=== PATIENT | female | born 1995 | race Caucasian/White ===

== ENCOUNTER 2022-06-17 16:52 | Emergency (ER) | payer BC ==
[2022-06-17 17:18] LABS: Glucose,Whole Blood 113 mg/dL (70-110)
[2022-06-17 17:37] LABS: Basophils % (A) 0 %; Eosinophils # (A) 0.1 k/uL (0-0.7); Eosinophils % (A) 1 %; HCT 42.2 % (34.0-46.0); Lymphocytes # (A) 1.1 k/uL (1.0-4.8); Lymphocytes % (A) 11 %; MCH 30.4 pg (25.0-35.0); MCHC 33.1 g/dL (31.0-37.0); MCV 91.6 fL (80.0-100.0); Monocytes # (A) 0.6 k/uL (0-1.0); Monocytes % (A) 6 %; Neutrophils # (A) 8.2 k/uL (1.3-7.7); Neutrophils % (A) 82 %; Platelet Count 241 k/uL (150-450); RDW 12.6 % (11.5-15.5)
[2022-06-17 18:11] LABS: ALT 18 U/L (4-34); AST 17 U/L (14-36); African American GFR (CKD) >90 (>60 ml/min/1.73 sqM); Albumin 4.5 g/dL (3.5-5.0); Alkaline Phosphatase 53 U/L (38-126); Anion Gap 9 mmol/L; Blood Urea Nitrogen 4 mg/dL (7-17); Calcium 8.7 mg/dL (8.4-10.2); Carbon Dioxide 29 mmol/L (22-30); Chloride 103 mmol/L (98-107); Glucose 84 mg/dL (74-99); Non-African American GFR(CKD) >90 (>60 ml/min/1.73 sqM); Potassium 3.5 mmol/L (3.5-5.1); Sodium 141 mmol/L (137-145); Total Bilirubin 0.9 mg/dL (0.2-1.3); Total Protein 7.3 g/dL (6.3-8.2)
[2022-06-17] MEDS ORDERED: SODIUM CHLORIDE 0.9% 1,000 ML IV ONE (18:55)
--- NOTE | 2022-06-17 18:57 | ED ---
General Adult HPI - General Chief complaint: Syncope Stated complaint: syncope Time Seen by Provider: 06/17/22 18:36 Source: patient, RN notes reviewed Mode of arrival: ambulatory Limitations: no limitations - History of Present Illness Initial comments: 26-year-old female with no significant past medical history presents the emergency department with a chief complaint of syncope. She reports that she was at work earlier had an episode where she felt faint and "passed out for a few seconds." Patient denies hitting her head, any anticoagulant use. She denies any dizziness, lightheadedness, vision changes, headache, nausea, vomiting, diarrhea. She denies a history of seizures or diabetes. She denies any recent alcohol or drug use. - Related Data Previous Rx's Medication Instructions Recorded Famotidine [Pepcid] 20 mg PO BID #20 tablet 02/05/17 Ondansetron Odt [Zofran ODT] 4 mg PO Q8HR PRN #20 tab 02/05/17 Allergies Allergy/AdvReac Type Severity Reaction Status Date / Time No Known Allergies Allergy Verified 06/17/22 17:12 Review of Systems ROS Statement: Those systems with pertinent positive or pertinent negative responses have been documented in the HPI. ROS Other: All systems not noted in ROS Statement are negative. Past Medical History Past Medical History: Asthma, GERD/Reflux, Skin Disorder Additional Past Medical History / Comment(s): FREQ/ N/V OFF AND ON PAST MONTH. ECZEMA History of Any Multi-Drug Resistant Organisms: None Reported Past Surgical History: Cholecystectomy Past Anesthesia/Blood Transfusion Reactions: No Reported Reaction Past Psychological History: No Psychological Hx Reported Smoking Status: Current every day smoker Past Alcohol Use History: Daily Past Drug Use History: Marijuana General Exam Limitations: no limitations General appearance: alert, in no apparent distress Head exam: Present: atraumatic, normocephalic, normal inspection Eye exam: Present: normal appearance, PERRL, EOMI. Absent: scleral icterus, conjunctival injection, periorbital swelling ENT exam: Present: normal exam, mucous membranes moist Neck exam: Present: normal inspection. Absent: tenderness, meningismus, lymphadenopathy Respiratory exam: Present: normal lung sounds bilaterally. Absent: respiratory distress, wheezes, rales, rhonchi, stridor Cardiovascular Exam: Present: regular rate, normal rhythm, normal heart sounds. Absent: systolic murmur, diastolic murmur, rubs, gallop, clicks GI/Abdominal exam: Present: soft, normal bowel sounds. Absent: distended, tenderness, guarding, rebound, rigid Extremities exam: Present: normal inspection, full ROM, normal capillary refill. Absent: tenderness, pedal edema, joint swelling, calf tenderness Back exam: Present: normal inspection Neurological exam: Present: alert, oriented X3, CN II-XII intact Psychiatric exam: Present: normal affect, normal mood Skin exam: Present: warm, dry, intact, normal color. Absent: rash Course Vital Signs 06/17/22 06/17/22 06/17/22 17:09 19:12 21:41 Temperature 97.7 F 98.1 F Pulse Rate 82 60 64 Respiratory 18 16 16 Rate Blood Pressure 128/91 110/69 114/61 O2 Sat by Pulse 18 L 100 99 Oximetry EKG Findings - EKG Comments: EKG Findings:: I interpreted the following: EKG performed at 17:19 and normal sinus rhythm. Rate is 60 bpm VT interval 154, QRS duration 86, QT/QTc 3/402 Medical Decision Making - Medical Decision Making Was pt. sent in by a medical professional or institution (Dr. PA, WHEELCHAIR VAN OPERATOR FIRST RESPONDER, urgent care, hospital, or [facility]...) When possible be specific @ -[No] Did you speak to anyone other than the patient for history (EMS, parent, family, police, friend...)? What history was obtained from this source @ -[No] Did you review nursing and triage notes (agree or disagree)? Why? @ -[I reviewed and agree with nursing and triage notes] Were old charts reviewed (outside hosp., previous admission, EMS record, old EKG, old radiological studies, urgent care reports/EKG's, [facility] records)? Report findings @ -[No old charts were reviewed] Differential Diagnosis (chest pain, altered mental status, abdominal pain women, abdominal pain men, vaginal bleeding, weakness, fever, dyspnea, syncope, headache, dizziness, GI bleed, back pain, seizure, CVA, palpatations, mental health, musculoskeletal)? @ -[not applicable] EKG interpreted by me (3pts min.). @ -[As above] X-rays interpreted by me (1pt min.). @ -[None done] CT interpreted by me (1pt min.). @ -[None done] U/S interpreted by me (1pt. min.). @ -[None done] What testing was considered but not performed or refused? (CT, X-rays, U/S, labs)? Why? @ -[None] What meds were considered but not given or refused? Why? @ -[None] Did you discuss the management of the patient with other professionals (professionals i.e. , PA, WHEELCHAIR VAN OPERATOR FIRST RESPONDER, lab, RT, psych nurse, elementary school social worker, intellectual property lawyer, teacher, chief juvenile probation officer, caseworker protective services)? Give summary @ -[No] Was smoking cessation discussed for >3mins.? @ -[No] Was critical care preformed (if so, how long)? @ -[No] Were there social determinants of health that impacted care today? How? (Homelessness, low income, unemployed, alcoholism, drug addiction, transportation, low edu. Level, literacy, decrease access to med. care, care home, rehab)? @ -[No] Was there de-escalation of care discussed even if they declined (Discuss DNR or withdrawal of care, Hospice)? DNR status @ -[No] What co-morbidities impacted this encounter? (DM, HTN, Smoking, COPD, CAD, Cancer, CVA, ARF, Chemo, Hep., AIDS, mental health diagnosis, sleep apnea, morbid obesity)? @ -[None] Was patient admitted / discharged? Hospital course, mention meds given and route, prescriptions, significant lab abnormalities, going to OR and other pertinent info. @ -Discharged. This is a 26-year-old female who presents to the emergency department with syncopal episode. Patient had a thorough physical exam and history obtained on the ED. Physical exam is essentially unremarkable heart rate regular rate and rhythm, lungs clear to auscultation bilaterally abdomen is soft and nontender vital signs are stable. Patient had lab work and imaging which were essentially unremarkable. Patient given 1 L IV fluids with symptomatic relief. I discussed the results in detail with the patient verbalized understanding and all questions were addressed. Return precautions were discussed at length. Patient discharged in stable condition. Case discussed with Dr. Rainey, [facility] who agrees with plan of care Undiagnosed new problem with uncertain prognosis? @ -[No] Drug Therapy requiring intensive monitoring for toxicity (Heparin, Nitro, Insulin, Cardizem)? @ -[No] Were any procedures done? @ -[No] Diagnosis/symptom? @ -syncope Acute, or Chronic, or Acute on Chronic? @ -acute Uncomplicated (without systemic symptoms) or Complicated (systemic symptoms)? @ -uncomplicated Side effects of treatment? @ -[No] Exacerbation, Progression, or Severe Exacerbation? @ -[No] Poses a threat to life or bodily function? How? (Chest pain, [place], [place], pneumonia, PE, COPD, DKA, ARF, appy, cholecystitis, CVA, Diverticulitis, Homicidal, Suicidal, threat to staff... and all critical care pts) @ -low likelihood - Lab Data Result diagrams: 06/17/22 17:24 06/17/22 17:24 Lab Results 06/17/22 06/17/22 06/17/22 Range/Units 17:16 17:24 17:24 WBC 10.0 (3.8-10.6) k/uL RBC 4.60 (3.80-5.40) m/uL Hgb 14.0 (11.4-16.0) gm/dL Hct 42.2 (34.0-46.0) % MCV 91.6 (80.0-100.0) fL MCH 30.4 (25.0-35.0) pg MCHC 33.1 (31.0-37.0) g/dL RDW 12.6 (11.5-15.5) % Plt Count 241 (150-450) k/uL MPV 8.0 Neutrophils % 82 % Lymphocytes % 11 % Monocytes % 6 % Eosinophils % 1 % Basophils % 0 % Neutrophils # 8.2 H (1.3-7.7) k/uL Lymphocytes # 1.1 (1.0-4.8) k/uL Monocytes # 0.6 (0-1.0) k/uL Eosinophils # 0.1 (0-0.7) k/uL Basophils # 0.0 (0-0.2) k/uL PT (9.0-12.0) sec INR (<1.2) APTT (22.0-30.0) sec Sodium 141 (137-145) mmol/L Potassium 3.5 (3.5-5.1) mmol/L Chloride 103 (98-107) mmol/L Carbon Dioxide 29 (22-30) mmol/L Anion Gap 9 mmol/L BUN 4 L (7-17) mg/dL Creatinine 0.87 (0.52-1.04) mg/dL Est GFR (CKD-EPI)AfAm >90 (>60 ml/min/1.73 sqM) Est GFR (CKD-EPI)NonAf >90 (>60 ml/min/1.73 sqM) Glucose 84 (74-99) mg/dL POC Glucose (mg/dL) 113 H (70-110) mg/dL POC Glu Corporate Sales Trainer ID Mindy Sierra Calcium 8.7 (8.4-10.2) mg/dL Total Bilirubin 0.9 (0.2-1.3) mg/dL AST 17 (14-36) U/L ALT 18 (4-34) U/L Alkaline Phosphatase 53 (38-126) U/L Troponin I (0.000-0.034) ng/mL Total Protein 7.3 (6.3-8.2) g/dL Albumin 4.5 (3.5-5.0) g/dL Urine Color Urine Appearance (Clear) Urine pH (5.0-8.0) Ur Specific [place] (1.001-1.035) Urine Protein (Negative) Urine Glucose (UA) (Negative) Urine Ketones (Negative) Urine Blood (Negative) Urine Nitrite (Negative) Urine Bilirubin (Negative) Urine Urobilinogen (<2.0) mg/dL Ur Leukocyte Esterase (Negative) Urine RBC (0-5) /hpf Urine WBC (0-5) /hpf Ur Squamous Epith Cells (0-4) /hpf Urine Bacteria (None) /hpf Urine Mucus (None) /hpf Urine HCG, Qual (Not Detectd) Urine Opiates Screen (NotDetected) Ur Oxycodone Screen (NotDetected) Urine Methadone Screen (NotDetected) Ur Propoxyphene Screen (NotDetected) Ur Barbiturates Screen (NotDetected) U Tricyclic Antidepress (NotDetected) Ur Phencyclidine Scrn (NotDetected) Ur Amphetamines Screen (NotDetected) U Methamphetamines Scrn (NotDetected) U Benzodiazepines Scrn (NotDetected) Urine Cocaine Screen (NotDetected) U Marijuana (THC) Screen (NotDetected) 06/17/22 06/17/22 06/17/22 Range/Units 20:00 20:00 20:41 WBC (3.8-10.6) k/uL RBC (3.80-5.40) m/uL Hgb (11.4-16.0) gm/dL Hct (34.0-46.0) % MCV (80.0-100.0) fL MCH (25.0-35.0) pg MCHC (31.0-37.0) g/dL RDW (11.5-15.5) % Plt Count (150-450) k/uL MPV Neutrophils % % Lymphocytes % % Monocytes % % Eosinophils % % Basophils % % Neutrophils # (1.3-7.7) k/uL Lymphocytes # (1.0-4.8) k/uL Monocytes # (0-1.0) k/uL Eosinophils # (0-0.7) k/uL Basophils # (0-0.2) k/uL PT 11.6 (9.0-12.0) sec INR 1.1 (<1.2) APTT 22.3 (22.0-30.0) sec Sodium (137-145) mmol/L Potassium (3.5-5.1) mmol/L Chloride (98-107) mmol/L Carbon Dioxide (22-30) mmol/L Anion Gap mmol/L BUN (7-17) mg/dL Creatinine (0.52-1.04) mg/dL Est GFR (CKD-EPI)AfAm (>60 ml/min/1.73 sqM) Est GFR (CKD-EPI)NonAf (>60 ml/min/1.73 sqM) Glucose (74-99) mg/dL POC Glucose (mg/dL) (70-110) mg/dL POC Glu Corporate Sales Trainer ID Calcium (8.4-10.2) mg/dL Total Bilirubin (0.2-1.3) mg/dL AST (14-36) U/L ALT (4-34) U/L Alkaline Phosphatase (38-126) U/L Troponin I <0.012 (0.000-0.034) ng/mL Total Protein (6.3-8.2) g/dL Albumin (3.5-5.0) g/dL Urine Color Light Yellow Urine Appearance Cloudy H (Clear) Urine pH 6.0 (5.0-8.0) Ur Specific [place] 1.004 (1.001-1.035) Urine Protein Negative (Negative) Urine Glucose (UA) Negative (Negative) Urine Ketones Negative (Negative) Urine Blood Negative (Negative) Urine Nitrite Negative (Negative) Urine Bilirubin Negative (Negative) Urine Urobilinogen <2.0 (<2.0) mg/dL Ur Leukocyte Esterase Trace H (Negative) Urine RBC 4 (0-5) /hpf Urine WBC 13 H (0-5) /hpf Ur Squamous Epith Cells 1 (0-4) /hpf Urine Bacteria Many H (None) /hpf Urine Mucus Rare H (None) /hpf Urine HCG, Qual (Not Detectd) Urine Opiates Screen (NotDetected) Ur Oxycodone Screen (NotDetected) Urine Methadone Screen (NotDetected) Ur Propoxyphene Screen (NotDetected) Ur Barbiturates Screen (NotDetected) U Tricyclic Antidepress (NotDetected) Ur Phencyclidine Scrn (NotDetected) Ur Amphetamines Screen (NotDetected) U Methamphetamines Scrn (NotDetected) U Benzodiazepines Scrn (NotDetected) Urine Cocaine Screen (NotDetected) U Marijuana (THC) Screen (NotDetected) 06/17/22 06/17/22 Range/Units 20:41 20:41 WBC (3.8-10.6) k/uL RBC (3.80-5.40) m/uL Hgb (11.4-16.0) gm/dL Hct (34.0-46.0) % MCV (80.0-100.0) fL MCH (25.0-35.0) pg MCHC (31.0-37.0) g/dL RDW (11.5-15.5) % Plt Count (150-450) k/uL MPV Neutrophils % % Lymphocytes % % Monocytes % % Eosinophils % % Basophils % % Neutrophils # (1.3-7.7) k/uL Lymphocytes # (1.0-4.8) k/uL Monocytes # (0-1.0) k/uL Eosinophils # (0-0.7) k/uL Basophils # (0-0.2) k/uL PT (9.0-12.0) sec INR (<1.2) APTT (22.0-30.0) sec Sodium (137-145) mmol/L Potassium (3.5-5.1) mmol/L Chloride (98-107) mmol/L Carbon Dioxide (22-30) mmol/L Anion Gap mmol/L BUN (7-17) mg/dL Creatinine (0.52-1.04) mg/dL Est GFR (CKD-EPI)AfAm (>60 ml/min/1.73 sqM) Est GFR (CKD-EPI)NonAf (>60 ml/min/1.73 sqM) Glucose (74-99) mg/dL POC Glucose (mg/dL) (70-110) mg/dL POC Glu Corporate Sales Trainer ID Calcium (8.4-10.2) mg/dL Total Bilirubin (0.2-1.3) mg/dL AST (14-36) U/L ALT (4-34) U/L Alkaline Phosphatase (38-126) U/L Troponin I (0.000-0.034) ng/mL Total Protein (6.3-8.2) g/dL Albumin (3.5-5.0) g/dL Urine Color Urine Appearance (Clear) Urine pH (5.0-8.0) Ur Specific [place] (1.001-1.035) Urine Protein (Negative) Urine Glucose (UA) (Negative) Urine Ketones (Negative) Urine Blood (Negative) Urine Nitrite (Negative) Urine Bilirubin (Negative) Urine Urobilinogen (<2.0) mg/dL Ur Leukocyte Esterase (Negative) Urine RBC (0-5) /hpf Urine WBC (0-5) /hpf Ur Squamous Epith Cells (0-4) /hpf Urine Bacteria (None) /hpf Urine Mucus (None) /hpf Urine HCG, Qual Not Detected (Not Detectd) Urine Opiates Screen Not Detected (NotDetected) Ur Oxycodone Screen Not Detected (NotDetected) Urine Methadone Screen Not Detected (NotDetected) Ur Propoxyphene Screen Not Detected (NotDetected) Ur Barbiturates Screen Not Detected (NotDetected) U Tricyclic Antidepress Not Detected (NotDetected) Ur Phencyclidine Scrn Not Detected (NotDetected) Ur Amphetamines Screen Not Detected (NotDetected) U Methamphetamines Scrn Not Detected (NotDetected) U Benzodiazepines Scrn Not Detected (NotDetected) Urine Cocaine Screen Not Detected (NotDetected) U Marijuana (THC) Screen Not Detected (NotDetected) Disposition Clinical Impression: Syncope Disposition: HOME SELF-CARE Condition: Stable Instructions (If sedation given, give patient instructions): Syncope (ED) Additional Instructions: Please return to the nearest emergency department if symptoms worsen or persist Is patient prescribed a controlled substance at d/c from ED?: No Referrals: None,Stated [Primary Care Provider] - 1-2 days Time of Disposition: 21:30
--- NOTE | 2022-06-17 20:11 | XR ---
EXAMINATION TYPE: XR chest 2V DATE OF EXAM: 06/17/2022 COMPARISON: Chest x-ray February 05, 2017 HISTORY: Syncope and weakness. TECHNIQUE: Frontal and lateral views of the chest are obtained. FINDINGS: There is no suspicious focal air space opacity, pleural effusion, or pneumothorax seen. T he cardiac silhouette size is stable and within normal limits. The osseous structures are intact. IMPRESSION: No acute process. No significant change from prior x-ray.
--- NOTE | 2022-06-17 20:31 | CT ---
EXAMINATION TYPE: CT brain wo con DATE OF EXAM: 06/17/2022 COMPARISON: MRI brain 2011. HISTORY: syncope CT DLP: 1159.4 mGycm. Automated Exposure Control for Dose Reduction was Utilized. TECHNIQUE: CT scan of the head is performed without contrast. FINDINGS: There is no acute intracranial hemorrhage, mass effect, or midline shift identified. The ventricles and sulci are within normal limits in size. Crespo-white matter differentiation is [place]ta[place] abbey. The globes are intact and the visualized sinuses are clear. IMPRESSION: No acute intracranial hemorrhage or midline shift is seen. Unremarkable study.
[2022-06-17 20:37] LABS: INR 1.1 (<1.2); Partial Thromboplastin Time 22.3 sec (22.0-30.0); Prothrombin Time 11.6 sec (9.0-12.0)
[2022-06-17 20:41] VITALS: RESP 16
[2022-06-17 21:04] LABS: Appearance,Urine Cloudy (Clear); Bacteria,Urine Many /hpf; Bilirubin,Urine Negative (Negative); Blood,Urine Negative (Negative); Color,Urine Light Yellow; Glucose,Urine (UA) Negative (Negative); Ketones,Urine Negative (Negative); Leukocyte Esterase,Urine Trace (Negative); Mucus,Urine Rare /hpf; Nitrite,Urine Negative (Negative); Protein,Urine Negative (Negative); RBC,Urine 4 /hpf (0-5); Specific Gravity,Urine 1.004 (1.001-1.035); Squamous Epithelial Cell,Urine 1 /hpf (0-4); Urobilinogen,Urine <2.0 mg/dL (<2.0); WBC,Urine 13 /hpf (0-5)
[2022-06-17 21:23] LABS: Amphetamine Screen,Urine Not Detected (NotDetected); Barbiturate Screen,Urine Not Detected (NotDetected); Benzodiazepines Screen,Urine Not Detected (NotDetected); Cocaine Screen,Urine Not Detected (NotDetected); Methadone Screen, Urine Not Detected (NotDetected); Opiate Screen,Urine Not Detected (NotDetected); Oxycodone Screen, Urine Not Detected (NotDetected); Phencyclidine Screen,Urine Not Detected (NotDetected); Tricyclic Antidepressant,Urine Not Detected (NotDetected); Urn Cannabinoid Scrn Not Detected (NotDetected)
[2022-06-17 21:43] VITALS: BP 114/61; PULSE 64; TEMP 98.1
== END 2022-06-17 21:43 | disposition home or self-care (01) ==
LOC: EC 16:52
DX: R55 Syncope and collapse (principal); J45.909 Unspecified asthma, uncomplicated; F12.90 Cannabis use, unspecified, uncomplicated; F17.200 Nicotine dependence, unspecified, uncomplicated
CPT/HCPCS: 36415; 70450; 71046; 80053; 80306; 81001; 81025; 84484; 85025; 85610; 85730; 93005; 96360; 99284

== ENCOUNTER 2022-06-25 19:26 | Inpatient (IN) | payer BC, OTHER ==
--- NOTE | 2022-06-26 03:36 | ED ---
Psych HPI - General Chief Complaint: Psychiatric Symptoms Stated Complaint: MENTAL HEALTH Time Seen by Provider: 06/25/22 20:14 Source: patient Mode of arrival: ambulatory - History of Present Illness Initial Comments: This patient is 26-year-old woman with history of previous episodes of depression. She presents to have evaluation after having worsening of her mood. The patient states she has tried to deal with things by huffing solvents. She states that she has continued to feel more depressed and has had persistent thoughts of suicide. She mentioned this to family members and they had her come here for evaluation. MD Complaint: suicidal ideation, feels depressed -: week(s) Associated Psychiatric Symptoms: depression, suicidal ideation History of same: Yes Quality: getting worse Improves With: none Worsens With: other Associated Symptoms: denies other symptoms - Related Data Home Medications Medication Instructions Recorded Confirmed No Known Home Medications 06/25/22 06/26/22 Previous Rx's Medication Instructions Recorded Sertraline [Zoloft] 75 mg PO DAILY 30 Days #90 tab 06/28/22 Allergies Allergy/AdvReac Type Severity Reaction Status Date / Time No Known Allergies Allergy Verified 06/26/22 05:19 Review of Systems ROS Statement: Those systems with pertinent positive or pertinent negative responses have been documented in the HPI. ROS Other: All systems not noted in ROS Statement are negative. Constitutional: Denies: fever, chills Respiratory: Denies: cough, dyspnea Cardiovascular: Denies: chest pain, palpitations Gastrointestinal: Denies: abdominal pain, vomiting, diarrhea Genitourinary: Denies: dysuria, hematuria Musculoskeletal: Denies: back pain Skin: Denies: rash Neurological: Denies: headache, weakness Past Medical History Past Medical History: Asthma, GERD/Reflux, Skin Disorder Additional Past Medical History / Comment(s): FREQ/ N/V OFF AND ON PAST MONTH. ECZEMA History of Any Multi-Drug Resistant Organisms: None Reported Past Surgical History: Cholecystectomy Past Anesthesia/Blood Transfusion Reactions: No Reported Reaction Past Psychological History: No Psychological Hx Reported Smoking Status: Current every day smoker Past Alcohol Use History: Daily Past Drug Use History: Marijuana General Exam Limitations: no limitations General appearance: alert, in no apparent distress Head exam: Present: atraumatic, normocephalic Eye exam: Present: normal appearance. Absent: scleral icterus, conjunctival injection Neck exam: Present: normal inspection Respiratory exam: Present: normal lung sounds bilaterally. Absent: respiratory distress, wheezes, rales, rhonchi, stridor Cardiovascular Exam: Present: regular rate, normal rhythm, normal heart sounds. Absent: systolic murmur, diastolic murmur, rubs, gallop GI/Abdominal exam: Present: soft. Absent: distended, tenderness, guarding, rebound, mass Extremities exam: Present: normal inspection, normal capillary refill Back exam: Present: normal inspection Neurological exam: Present: alert Psychiatric exam: Present: depressed, flat affect, suicidal ideation. Absent: agitated, anxious, manic, homicidal ideation Skin exam: Present: warm, dry, intact, normal color. Absent: rash Course Vital Signs 06/25/22 06/25/22 20:01 20:18 Temperature 98.6 F 98 F Pulse Rate 90 95 Respiratory 20 20 Rate Blood Pressure 143/85 141/87 O2 Sat by Pulse 99 99 Oximetry Medical Decision Making - Medical Decision Making Patient is 26-year-old woman admitted for mood disorder and suicidal ideation Was pt. sent in by a medical professional or institution (MIKE Trevino, ALIGNER, urgent care, hospital, or custodial...) When possible be specific @ -[No] Did you speak to anyone other than the patient for history (EMS, parent, family, police, friend...)? What history was obtained from this source @ -[No] Did you review nursing and triage notes (agree or disagree)? Why? @ -[I reviewed and agree with nursing and triage notes] Were old charts reviewed (outside hosp., previous admission, EMS record, old EKG, old radiological studies, urgent care reports/EKG's, custodial records)? Report findings @ -[No old charts were reviewed] Differential Diagnosis (chest pain, altered mental status, abdominal pain women, abdominal pain men, vaginal bleeding, weakness, fever, dyspnea, syncope, headache, dizziness, GI bleed, back pain, seizure, CVA, palpatations, mental health, musculoskeletal)? @ -[Differential Mental Health Depression, anxiety, bipolar, psychosis, schizophrenia, borderline personality, situational depression, adjustment disorder, behavioral disorder, brain tumor, malingering, substance abuse, encephalopathy, medication reaction, dementia, hypothyroidism, degenerative neurologic disorder, lupus.... This is not meant to be all-inclusive list EKG interpreted by me (3pts min.). @ -[ X-rays interpreted by me (1pt min.). @ -[None done] CT interpreted by me (1pt min.). @ -[None done] U/S interpreted by me (1pt. min.). @ -[None done] What testing was considered but not performed or refused? (CT, X-rays, U/S, labs)? Why? @ -[None] What meds were considered but not given or refused? Why? @ -[None] Did you discuss the management of the patient with other professionals (professionals i.e. , PA, ALIGNER, lab, RT, psych nurse, social sciences professor, business operations consultant, teacher, security officer, residential case manager)? Give summary @ -[EPS personnel Was smoking cessation discussed for >3mins.? @ -[No] Was critical care preformed (if so, how long)? @ -[No] Were there social determinants of health that impacted care today? How? (Homelessness, low income, unemployed, alcoholism, drug addiction, transportation, low edu. Level, literacy, decrease access to med. care, alf, r ehab)? @ -[No] Was there de-escalation of care discussed even if they declined (Discuss DNR or withdrawal of care, Hospice)? DNR status @ -[No] What co-morbidities impacted this encounter? (DM, HTN, Smoking, COPD, CAD, Cance r, CVA, ARF, Chemo, Hep., AIDS, mental health diagnosis, sleep apnea, morbid obesity)? @ -[None] Was patient admitted / discharged? Hospital course, mention meds given and route, prescriptions, significant lab abnormalities, going to OR and other pertinent info. @ -[Patient is admitted Undiagnosed new problem with uncertain prognosis? @ -[No] Drug Therapy requiring intensive monitoring for toxicity (Heparin, Nitro, Insulin, Cardizem)? @ -[No] Were any procedures done? @ -[No] Diagnosis/symptom? @ -[Mood disorder with suicidal ideation Acute, or Chronic, or Acute on Chronic? @ -[Acute on chronic Uncomplicated (without systemic symptoms) or Complicated (systemic symptoms)? @ -[default] Side effects of treatment? @ -[No] Exacerbation, Progression, or Severe Exacerbation? @ -[No] Poses a threat to life or bodily function? How? (Chest pain, [place], [place], pneumonia, PE, COPD, DKA, ARF, appy, cholecystitis, CVA, Diverticulitis, Homicidal, Suicidal, threat to staff... and all critical care pts) @ -[Yes, untreated mood disorder may progress to suicide - Lab Data Result diagrams: 06/27/22 07:25 06/27/22 07:25 Lab Results 06/26/22 Range/Units 01:40 Coronavirus (PCR) Not Detected (Not Detectd) Disposition Clinical Impression: Depression, Suicidal ideation Disposition: ADMITTED IP TO THIS HOSP Condition: Stable Is patient prescribed a controlled substance at d/c from ED?: No
[2022-06-26 06:29] VITALS: RESP 14
[2022-06-26] MEDS ORDERED: hydrOXYzine HCL 50 MG/ML 1 ML VIAL IM PRN (06:54)
[2022-06-26] MEDS ORDERED: OLANZapine 10 MG VIAL IM PRN (06:54)
[2022-06-26] MEDS ORDERED: ACETAMINOPHEN TAB 325 MG TAB PO PRN (06:54)
[2022-06-26] MEDS ORDERED: MAG HYDROX/AL HYDROX/SIMETH 30 ML CUP PO PRN (06:54)
[2022-06-26] MEDS ORDERED: OLANZapine 5 MG TAB PO PRN (06:54)
[2022-06-26] MEDS ORDERED: MAGNESIUM HYDROXIDE 2,400 MG/10 ML CUP PO PRN (06:54)
[2022-06-26] MEDS ORDERED: hydrOXYzine pamoate 25 MG CAP PO PRN (07:00)
[2022-06-26] MEDS: NICOTINE 14MG/24HR PATCH TRANSDERM SCH (10:40)
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
[2022-06-26] MEDS ORDERED: MIRTAZAPINE 15 MG TAB PO SCH (21:00)
[2022-06-27 08:19] LABS: ALT 18 U/L (4-34); AST 23 U/L (14-36); African American GFR (CKD) >90 (>60 ml/min/1.73 sqM); Albumin 4.4 g/dL (3.5-5.0); Alkaline Phosphatase 42 U/L (38-126); Anion Gap 11 mmol/L; Bilirubin, Delta 0.3 mg/dL (0.0-0.2); Bilirubin,Unconjugated 0.4 mg/dL (0.0-1.1); Blood Urea Nitrogen 13 mg/dL (7-17); Calcium 9.4 mg/dL (8.4-10.2); Carbon Dioxide 23 mmol/L (22-30); Chloride 104 mmol/L (98-107); Non-African American GFR(CKD) >90 (>60 ml/min/1.73 sqM); Potassium 4.5 mmol/L (3.5-5.1); Sodium 138 mmol/L (137-145); Total Bilirubin 0.7 mg/dL (0.2-1.3); Total Protein 7.3 g/dL (6.3-8.2)
[2022-06-27 08:26] LABS: Basophils % (A) 0 %; Eosinophils # (A) 0.1 k/uL (0-0.7); Eosinophils % (A) 1 %; HCT 43.8 % (34.0-46.0); HGB 14.6 gm/dL (11.4-16.0); Lymphocytes # (A) 1.8 k/uL (1.0-4.8); Lymphocytes % (A) 24 %; MCH 30.6 pg (25.0-35.0); MCHC 33.4 g/dL (31.0-37.0); MCV 91.6 fL (80.0-100.0); Monocytes # (A) 0.4 k/uL (0-1.0); Monocytes % (A) 5 %; Neutrophils # (A) 5.2 k/uL (1.3-7.7); Neutrophils % (A) 68 %; Platelet Count 190 k/uL (150-450); RBC 4.78 m/uL (3.80-5.40); RDW 13.1 % (11.5-15.5); WBC 7.6 k/uL (3.8-10.6)
[2022-06-27 08:30] LABS: Glucose 97 mg/dL (74-99)
[2022-06-27] MEDS: NICOTINE 14MG/24HR PATCH TRANSDERM SCH (09:12)
[2022-06-27] MEDS ORDERED: MELATONIN 5 MG TABLET PO PRN (09:39)
[2022-06-27] MEDS: SERTRALINE 25 MG TAB PO SCH (09:48)
--- NOTE | 2022-06-27 12:31 | P.PN ---
Progress Note - Text Progress Note Date: 06/27/22 Interval history: Patient was seen today laying in her bed and was agreeable to take a account underwriter. She states that she overslept last night and slept around 10-12 hours. She claims that she felt the Remeron was too strong for her. We spoke about other medications for sleep and states that "I'm sleeping okay, that wasn't really my problem". She states that her mood is still depressed, mild anxiety during the day. She was agreeable to try Zoloft today. She appeared to be somewhat disheveled in appearance, was attempting to cooperate during the interview and appropriate. [place] and monotone. Claims to have an improving appetite. Not endorsing any auditory or visual hallucinations. Denying any suicidal or homicidal ideations intent or plan. Mental status examination: General Appearance: Patient appears to be stated age is alert, directable, and attempts to cooperate. Patient appears to have fair hygiene and grooming. Behavior: Patient is seated without any agitated behavior. Eye contact is fair. Speech: Patient's speech is fluent and nonpressured. [place] Mood/Affect: Patient reports their mood is depressed, improving mildly, affect is incongruent appears to be nonchalant. Suicidality/Homicidality: Patient reports suicidal ideation. She denies any homicidal ideation. Perceptions: Patient denies any visual hallucinations and denies any auditory hallucinations Though content/process: The patient appears to be pre-contemplative in regards to her substance use. goal oriented, concrete. Memory and concentration: AOX3, grossly intact for the purposes of this session Judgment and insight: poor, improving midly IMPRESSIONS: Inhalant abuse with inhalant-induced mood disorder Depressive disorder, unspecified Nicotine dependence Alcohol use disorder, in remission Other psychoactive substance abuse PLAN: -Patient is admitted under voluntary status to MHU for stabilization of psychiatric symptoms and safety. Patient signed adult voluntary form and medication consent and is placed in patient's chart. -Medications : d/c remeron due to oversedation and replaced with melatonin prn instead for sleep. added zoloft 25 mg daily for mood/anxiety. -Zyprexa and Vistaril PRN for agitation/aggression -NRT - nicotine patch -SW on board for discharge planning. Encourage patient to participate in groups to work on coping skills.
[2022-06-27 17:17] LABS: Chol/HDL Ratio 5.11 Ratio; LDL Cholesterol,Calculated 127.6 mg/dL (0.0-131.0)
[2022-06-28 07:08] VITALS: BP 94/54; PULSE 71; TEMP 97.7
[2022-06-28] MEDS: NICOTINE 14MG/24HR PATCH TRANSDERM SCH (08:23)
[2022-06-28] MEDS: SERTRALINE 25 MG TAB PO SCH (08:24)
--- NOTE | 2022-06-28 11:03 | P.DS ---
Providers Date of admission: 06/26/22 04:17 Expected date of discharge: 06/28/22 Attending physician: Amadou Sanchez MD Consults: 06/26/22 06:54 Consult Physician Routine Consulting Provider: Eliu Campa Consult Reason/Comments: For H & P for Medical Follow Up Do you want consulting provider notified?: Yes Primary care physician: Stated None - Discharge Diagnosis(es) (1) Inhalant abuse with inhalant-induced mood disorder Current Visit: Yes Status: Acute Priority: High (2) Depression, unspecified Current Visit: Yes Status: Acute Priority: High (3) Psychoactive substance abuse Current Visit: Yes Status: Chronic Priority: Medium (4) Nicotine dependence Current Visit: Yes Status: Chronic Priority: Low (5) Alcohol use disorder in remission Current Visit: No Status: Chronic Priority: Low Hospital Course: Admission HPI: Patient is a single, employed, 26-year-old female with significant history of alcohol use disorder, inhalant use disorder, and ADHD who presented to our hospital on 06/26/2022 for depression and suicidal ideation. Patient presented to the hospital on 06/26/2022, brought in by family for psychiatric assessment. As per EPS note, the patient's mother brought the patient in because she has been struggling with depression for the past year. However, the patient's symptoms have worsened over the past several days. The patient reports suicidal ideation with no intention or plan. She has been expressing more intrusive thoughts. The patient also reported significant feelings of hopelessness and helplessness. There has also been a decrease in appetite and the patient has not eaten for 3 days prior to admission. The patient signed herself voluntarily to the psychiatric unit. Upon evaluation on the psychiatric unit, the patient continues to endorse significant symptoms of depression including hopelessness, helplessness, anhedonia, decreased appetite, low energy, and suicidal ideation. The patient denies any intention or plan and reports no previous attempts at suicide. She denies any homicidal ideation. She denies any significant history of bipolar disorder and reports no increased goal-directed activity, grandiosity, or periods of excessive energy. In regards to psychotic symptoms, the patient denies any history of auditory or visual hallucinations. She reports no history of paranoia or other delusions. The patient does report a significant history of substance abuse. She reports that she began using alcohol and marijuana when she was 11 years old however began drinking heavily when she was 15 years old. She describes drinking up to 2 fifths of liquor daily when she was 15 years old. She reports however that she had a DUI and is currently on probation and therefore stop drinking. She states that in order to cope with her lack of alcohol, she has been using inhalant such as whip-its and dusters. The patient reports that she has been using inhalants every other day. The patient also has a history of acid use which her last use was on Friday. She reports using tobacco daily; both cigarettes and vape pen. The patient signed herself voluntarily on the psychiatric unit for treatment of depression. Patient states that she has been previously diagnosed with ADHD and "mood s wings." She recalls being previously prescribed a mood stabilizer however is unable to identify its name. She also reports a history of being prescribed Adderall. Patient denies any previous psychiatric hospitalizations. Patient denies any psychiatric outpatient follow-up. Patient denies any history of suicide attempts in the past. Hospital course: Upon admission to the unit patient was initially presenting with complaints of depression, suicidal ideation, and low mood in the context of substance abuse. Patient was however directable and agreeable to commence treatment. Patient got along well with other patients on the unit and followed unit protocol. Patient was compliant with the medications and denied any side effects throughout hospital course. Patient was started on remeron initially for appetite simulation however felt that the medication was too sedating and therefore was transitioned to zoloft. Patient spoke of her stressors and engaged in therapy both group and individual. Patient was also seen by medical team for history and physical exam. Throughout the course of the hospitalization patient gradually improved with regards to depression and appetite. She became future oriented with improved insight and judgment. On the day of discharge patient denied any suicidal or homicidal ideations intent or plan denied any auditory or visual hallucinations. Patient endorsed wanting to live for his health and family. The patient denied any access to guns or weapons. Patient denied any paranoia and did not endorse any delusions. Patient does have a significant history of substance abuse however was counseled on abstaining from all substances including tobacco, alcohol, marijuana, inhalants, and all illicit drugs. Patient was offered however declined inpatient substance-abuse rehab. Patient was also counseled on the medications and need for regular compliance and was encouraged to follow-up with their outpatient appointment for mental health and also for primary care. Prior to discharge a family meeting will be arranged by social services analyst to answer any questions and ensure safety upon discharge. Mental status exam: General Appearance: Patient appears to be stated age is alert, pleasant, and cooperative. Patient is in no acute distress and has fair hygiene and grooming Behavior: Patient is calmly seated without any agitated behavior. Speech: Patient's speech is fluent and nonpressured. Mood/Affect: Patient reports their mood is "much better", affect is congruent and euthymic. Suicidality/Homicidality: Patient denies having any suicidal or homicidal ideation intent or plan. Perceptions: Patient denies any auditory or visual hallucinations. Though content/process: There is no evidence of any delusional thought content and thought process is linear and goal-directed. Patient is future oriented. Memory and concentration: AOX3, grossly intact for the purposes of this session. Can spell "WORLD" backwards correctly. Judgment and insight: Improved with guarded prognosis Impression: Inhalant abuse with inhalant-induced mood disorder Depressive disorder, unspecified Nicotine dependence Alcohol use disorder, in remission Other psychoactive substance abuse Plan: -Continue with discharge today as patient has improved and stabilized psychiatrically and is not currently an imminent threat to herself and/or others. Patient will remain at chronically elevated risk for harm to self and/or others due to her polysubstance abuse. -Continue medications: Zoloft 75 mg by mouth daily for depression/anxiety -Patient was counseled on the need for medication compliance and appropriate follow-up at mental health and also primary care for medical issues. Patient verbalized understanding and agreed. -Social work to arrange for and conduct family meeting to ensure safety upon discharge and answer any questions/concerns. Social work also to arrange for patients follow up appointments with [facility] for psychiatric care along with follow up with primary care provider. -Patient counseled on abstaining from recreational drugs and marijuana and alcohol. Was informed/educated on the adverse effects on their physical and mental health. Patient verbally agreed and understood. Patient was offered substance abuse treatment however declined at this time. -Patient was instructed to return to the hospital or seek immediate medical care if their psychiatric or medical symptoms do worsen or reoccur. -Psychoeducation and supportive therapy provided to patient. Risks and benefits of pharmacological treatment versus the risks and benefits of nontreatment weight and discussed. Informed consent discussion held. Common side effects of psychotropics discussed such as, but not limited to headache, GI disturbance, sexual dysfunction, movement disorders, sedation, and orthostatic hypotension. Life threatening and blackbox warnings of prescribed medications also discussed. Potential risks of operating a vehicle or heavy machinery discussed with p atient at length. Advised on importance of compliance and a reliable and responsible manner. Patient advised to review FDA consumer labeling of all medications prior to taking. Patient verbalized understanding of potential risks, and agrees with current treatment plan. Patient advised to medically contact physician/emergency personnel if any acute changes in condition occur. Vital Signs Temp 97.7 F 06/28/22 06:51 Pulse 71 06/28/22 06:51 Resp 14 06/28/22 06:51 BP 94/54 06/28/22 06:51 Pulse Ox 100 06/26/22 05:40 FiO2 Laboratory Results WBC 7.6 k/uL (3.8-10.6) 06/27/22 07:25 RBC 4.78 m/uL (3.80-5.40) 06/27/22 07:25 Hgb 14.6 gm/dL (11.4-16.0) 06/27/22 07:25 Hct 43.8 % (34.0-46.0) 06/27/22 07:25 MCV 91.6 fL (80.0-100.0) 06/27/22 07:25 MCH 30.6 pg (25.0-35.0) 06/27/22 07:25 MCHC 33.4 g/dL (31.0-37.0) 06/27/22 07:25 RDW 13.1 % (11.5-15.5) 06/27/22 07:25 Plt Count 190 k/uL (150-450) 06/27/22 07:25 MPV 8.0 06/27/22 07:25 Neutrophils % 68 % 06/27/22 07:25 Lymphocytes % 24 % 06/27/22 07:25 Monocytes % 5 % 06/27/22 07:25 Eosinophils % 1 % 06/27/22 07:25 Basophils % 0 % 06/27/22 07:25 Neutrophils # 5.2 k/uL (1.3-7.7) 06/27/22 07:25 Lymphocytes # 1.8 k/uL (1.0-4.8) 06/27/22 07:25 Monocytes # 0.4 k/uL (0-1.0) 06/27/22 07:25 Eosinophils # 0.1 k/uL (0-0.7) 06/27/22 07:25 Basophils # 0.0 k/uL (0-0.2) 06/27/22 07:25 Sodium 138 mmol/L (137-145) 06/27/22 07:25 Potassium 4.5 mmol/L (3.5-5.1) 06/27/22 07:25 Chloride 104 mmol/L (98-107) 06/27/22 07:25 Carbon Dioxide 23 mmol/L (22-30) 06/27/22 07:25 Anion Gap 11 mmol/L 06/27/22 07:25 BUN 13 mg/dL (7-17) 06/27/22 07:25 Creatinine 0.64 mg/dL (0.52-1.04) 06/27/22 07:25 Est GFR (CKD-EPI)AfAm >90 (>60 ml/min/1.73 sqM) 06/27/22 07:25 Est GFR (CKD-EPI)NonAf >90 (>60 ml/min/1.73 sqM) 06/27/22 07:25 Glucose 97 mg/dL (74-99) 06/27/22 07:25 Calcium 9.4 mg/dL (8.4-10.2) 06/27/22 07:25 Total Bilirubin 0.7 mg/dL (0.2-1.3) 06/27/22 07:25 Conjugated Bilirubin 0.0 mg/dL (0.0-0.3) 06/27/22 07:25 Unconjugated Bilirubin 0.4 mg/dL (0.0-1.1) 06/27/22 07:25 Delta Bilirubin 0.3 mg/dL (0.0-0.2) H 06/27/22 07:25 AST 23 U/L (14-36) 06/27/22 07:25 ALT 18 U/L (4-34) 06/27/22 07:25 Alkaline Phosphatase 42 U/L (38-126) 06/27/22 07:25 Total Protein 7.3 g/dL (6.3-8.2) 06/27/22 07:25 Albumin 4.4 g/dL (3.5-5.0) 06/27/22 07:25 Triglycerides 142.00 mg/dL (0.00-149.00) 06/27/22 07:25 Cholesterol 194.00 mg/dL (0.00-200.00) 06/27/22 07:25 LDL Cholesterol, Calc 127.6 mg/dL (0.0-131.0) 06/27/22 07:25 VLDL Cholesterol, Calc 28.40 mg/dL (5.00-40.00) 06/27/22 07:25 HDL Cholesterol 38.00 mg/dL (40.00-60.00) L 06/27/22 07:25 Cholesterol/HDL Ratio 5.11 Ratio 06/27/22 07:25 TSH 1.190 mIU/L (0.465-4.680) 06/27/22 07:25 Coronavirus (PCR) Not Detected (Not Detectd) 06/26/22 01:40 Allergies Allergy/AdvReac Type Severity Reaction Status Date / Time No Known Allergies Allergy Verified 06/26/22 05:19 Patient Condition at Discharge: Stable Plan - Discharge Summary Discharge Rx Participant: Yes New Discharge Prescriptions: New Sertraline [Zoloft] 75 mg PO DAILY 30 Days #90 tab No Action No Known Home Medications Discharge Medication List No Known Home Medications 06/25/22 [History] Sertraline [Zoloft] 75 mg PO DAILY 30 Days #90 tab 06/28/22 [Rx] Follow up Appointment(s)/Referral(s): None,Stated [Primary Care Provider] - 1-2 days Activity/Diet/Wound Care/Special Instructions: Avoid the use of street drugs and alcohol. Take all medications as prescribed. When you are in need of refills on your medications, please contact your medical provider and/or outpatient psychiatrist to have this done. Please go to scheduled outpatient appointments for aftercare treatment. If symptoms return or become worse, call the crisis line at and/or go to the nearest emergency room for evaluation. Discharge Disposition: HOME SELF-CARE
--- NOTE | 2022-06-28 12:56 | P.HPMEDMHU ---
History of Present Illness H&P Date: 06/28/22 Patient is a 26-year-old female with a past medical history of depression who was brought in by mother for worsening depression. Patient was seen in the [facility]. She has no acute complaints. She states that she is feeling much better. She is looking forward to going home. Review of Systems 10 ROS reviewed and are negative except as noted in HPI Past Medical History Past Medical History: Asthma, GERD/Reflux, Skin Disorder Additional Past Medical History / Comment(s): FREQ/ N/V OFF AND ON PAST MONTH. ECZEMA History of Any Multi-Drug Resistant Organisms: None Reported Past Surgical History: Cholecystectomy Past Anesthesia/Blood Transfusion Reactions: No Reported Reaction Smoking Status: Vaper Medications and Allergies Home Medications Medication Instructions Recorded Confirmed Type No Known Home Medications 06/25/22 06/26/22 History Sertraline [Zoloft] 75 mg PO DAILY 30 Days #90 tab 06/28/22 Rx Allergies Allergy/AdvReac Type Severity Reaction Status Date / Time No Known Allergies Allergy Verified 06/26/22 05:19 Physical Exam Osteopathic Statement: *. No significant issues noted on an osteopathic structural exam other than those noted in the History and Physical/Consult. Vitals: Vital Signs Temp Pulse Resp BP 06/28/22 06:51 97.7 F 71 14 94/54 General: [Alert and oriented, well nourished, no acute distress]. Eye: [PERRL, EOMI, normal conjunctiva]. HENT: [Normocephalic, clear tympanic membranes, normal hearing, moist oral mucos a, no scleral icterus, no sinus tenderness]. Neck: [Supple, non-tender, no carotid bruits, no JVD, no lymphadenopathy]. Lungs: [Clear to auscultation and percussion, non-labored respiration]. Heart: [Normal rate, regular rhythm, no murmur, gallop or edema]. Abdomen: [Soft, non-tender, non-distended, normal bowel sounds, no masses]. Musculoskeletal: [Normal range of motion and strength, no tenderness or swelling]. Skin: [Skin is warm, dry and pink, no rashes or lesions]. Neurologic: [Awake, alert, and oriented X3, CN II-XII intact]. Psychiatric: [Cooperative, appropriate mood and affect]. Cranial Nerve Examination - Cranial Nerves Cranial Nerve I- Olfactory: Intact Cranial Nerve II- Optic: Intact Cranial Nerve III- Oculomotor: Intact Cranial Nerve IV- Trochlear: Intact Cranial Nerve V- Trigeminal: Intact Cranial Nerve - Abducens: Intact Cranial Nerve VII- Facial: Intact Cranial Nerve VIII- Auditory: Intact Cranial Nerve IX- Glossopharyngeal: Intact Cranial Nerve X- Vagus: Intact Cranial Nerve XI- Accessory: Intact Cranial Nerve XII- Hypoglossal: Intact Results CBC & Chem 7: 06/27/22 07:25 06/27/22 07:25 Labs: Abnormal Lab Results - Last 24 Hours (Table) 06/27/22 Range/Units 07:25 HDL Cholesterol 38.00 L (40.00-60.00) mg/dL Thrombosis Risk Factor Assmnt - Choose All That Apply Any of the Below Risk Factors Present?: Yes Each Factor Represents 1 point: Obesity (BMI >25) Other Risk Factors: No Other congenital or acquired thrombophilia - If yes, enter type in comment: No Thrombosis Risk Factor Assessment Total Risk Factor Score: 1 Thrombosis Risk Factor Assessment Level: Low Risk Assessment and Plan Assessment: Tobacco abuse Patient counseled on smoking cessation Depression As Prilosec management Thank you for the consult. Please do not hesitate to causing any questions
== END 2022-06-28 13:55 | disposition home or self-care (01) | DRG 897 ==
LOC: EC 19:26 → 3MHU 06-26 04:17
PROVIDERS: ADMIT Psychiatry & Neurology Psychiatry; ATTEND Psychiatry & Neurology Psychiatry
DX: F18.1 Inhalant abuse (principal); R45.851 Suicidal ideations; F10.91 Alcohol use, unspecified, in remission; J45.909 Unspecified asthma, uncomplicated; F12.10 Cannabis abuse, uncomplicated; F16.10 Hallucinogen abuse, uncomplicated; F32.A Depression, unspecified; Z20.822 Contact with and (suspected) exposure to COVID-19; Z28.310 Unvaccinated for COVID-19; K21.9 Gastro-esophageal reflux disease without esophagitis; L30.9 Dermatitis, unspecified; F90.9 Attention-deficit hyperactivity disorder, unspecified type; F17.210 Nicotine dependence, cigarettes, uncomplicated; F17.290 Nicotine dependence, other tobacco product, uncomplicated; F41.9 Anxiety disorder, unspecified; Z71.6 Tobacco abuse counseling; Z91.410 Personal history of adult physical and sexual abuse; Z65.3 Problems related to other legal circumstances; Z71.51 Drug abuse counseling and surveillance of drug abuser; Z81.1 Family history of alcohol abuse and dependence
CPT/HCPCS: 80053; 80061; 82075; 82248; 83036; 84443; 85025; 87635; 99285